=== PATIENT | male | born 1930 | race Caucasian/White ===

== ENCOUNTER → 2016-03-08 | Outpatient (CLI) | payer MEDICARE, BC ==
--- NOTE | 2016-03-08 15:36 | XR ---
EXAMINATION TYPE: XR chest 2V DATE OF EXAM: 03/08/2016 3:23 PM COMPARISON: Prior chest x-ray June 19, 2012. HISTORY: Right-sided chest pain and cough. TECHNIQUE: Frontal and lateral views of the chest are obtained. FINDINGS: Pectus excavatum deformity is redemonstrated seen best on lateral view. There is new left basilar atelectasis and/or infiltrate. There is increased opacity with silhouetting of right heart pipe rder, developing infiltrate and/or atelectasis at this level cannot be excluded. No pleural effusion or pneumothorax is present bilaterally. The cardiac silhouette size is within stable and upper limits of normal. The osseous structures are intact. IMPRESSION: New bibasilar atelectasis and/or infiltrate is present. Consider progress study after tr eatment.
== END | disposition home or self-care (01) ==
LOC: RADXRMAIN 15:06
PROVIDERS: ATTEND Family Medicine
DX: R05 Cough (principal); M54.6 Pain in thoracic spine
CPT/HCPCS: 71020

== ENCOUNTER → 2016-03-22 | Outpatient (CLI) | payer MEDICARE, BC ==
--- NOTE | 2016-03-22 12:03 | XR ---
EXAMINATION TYPE: XR chest 2V DATE OF EXAM: 03/22/2016 11:55 AM COMPARISON: 03/08/16 HISTORY: Shortness of breath TECHNIQUE: Frontal and lateral views of the chest are obtained. FINDINGS: Scattered senescent parenchymal changes noted. Hyperinflation compatible with COPD. No evidence for infiltrate. No evidence for atelectasis. Heart size is stable. Mediastinal structures are stable and grossly unremarkable. No evidence for hilar prominence. Degenerative changes dorsal spine. IMPRESSION: 1. No evidence for acute pulmonary disease.
== END | disposition home or self-care (01) ==
LOC: RADXRMAIN 11:38
PROVIDERS: ATTEND Family Medicine
DX: J18.9 Pneumonia, unspecified organism (principal)
CPT/HCPCS: 71020

== ENCOUNTER → 2016-09-09 | Outpatient (CLI) | payer MEDICARE, BC ==
--- NOTE | 2016-09-09 11:48 | MR ---
EXAMINATION TYPE: MR shoulder RT wo con DATE OF EXAM: 09/09/2016 11:13 AM COMPARISON: NONE HISTORY: Right shoulder pain TECHNIQUE: Multiplanar, multisequence imaging of the right shoulder is performed without contrast. FINDINGS: There is no evidence of an os acromiale. There is moderate hypertrophic change and mild inf lammatory change involving the right AC joint. There is a mildly downward sloping acromion. There is a complete tear of the supraspinatus tendon and incomplete is full-thickness tear of the ant erior fibers of the infraspinatus tendon. The supraspinatus tendon is retracted to the level of the m idportion of the humeral head. The cartilaginous glenoid labrum appears intact. The biceps tendon is attenuated. Does remain within the biceps tendon groove. It does insert normally on the biceps anchor. There is abnormal fluid in the subacromial and subdeltoid bursas. IMPRESSION: 1. COMPLETE TEAR OF THE SUPRASPINATUS TENDON. 2. NEAR-COMPLETE TEAR OF THE INFRASPINATUS TENDON. 3. MARKED ATTENUATION OF THE BICEPS TENDON. 4. HYPERTROPHIC CHANGES IN THE RIGHT AC JOINT.
== END | disposition home or self-care (01) ==
LOC: RADMRIMAIN 10:38
PROVIDERS: ATTEND Orthopaedic Surgery
DX: S46.011A Strain of muscle(s) and tendon(s) of the rotator cuff of right shoulder, initial encounter (principal); M89.311 Hypertrophy of bone, right shoulder; M67.88 Other specified disorders of synovium and tendon, other site

== ENCOUNTER 2017-03-23 05:51 | Day surgery (SDC) | payer MEDICARE, BC ==
[2017-03-16 09:03] VITALS: BMI 22.2
--- NOTE | 2017-03-22 12:41 | HP ---
HISTORY AND PHYSICAL DATE OF SERVICE: 03/23/2017 Calvin is an 86-year-old patient seen with progressive right shoulder pain. We discussed treatment options. He elected to proceed with shoulder arthroscopy. Consent was obtained. Medical clearance was provided by Dr. Sj Cristina. PAST MEDICAL HISTORY: Noncontributory. PAST SURGICAL HISTORY: Noncontributory. DAILY MEDICATIONS: Vitamins. ALLERGIES: None reported. SOCIAL HISTORY: Patient denies tobacco use. PHYSICAL EVALUATION RIGHT SHOULDER: Flexion is 130 degrees, abduction is 110 degrees, external rotation is 20 degrees with pain and weakness. There is tenderness along the anterolateral acromion and rotator cuff insertion site. Impingement sign is positive at 90 degrees. Drop-arm sign is positive. Distal neurovascular exam is intact. Radiographs of the right shoulder revealed a type 2 anterior acromion, acromioclavicular joint osteoarthritis and cystic changes of the tuberosity. A right shoulder MRI revealed rotator cuff tear. IMPRESSION: Right shoulder impingement with rotator cuff tear and acromioclavicular joint osteoarthritis. PLAN: Right shoulder arthroscopy with subacromial decompression, probable arthroscopic rotator cuff repair, probable Carlos procedure and debridement. MMODL / IJN: [id number] /
[~2017-03-23 05:51] MED LIST: ceFAZolin IN SWFI 2 GM/20 ML SYRINGE IVP ONE
[2017-03-23] MEDS ORDERED: ONDANSETRON 4 MG/2 ML VIAL IVP ONE (06:01)
[2017-03-23] MEDS ORDERED: LACTATED RINGERS 1,000 ML IV SCH (06:01)
[2017-03-23] MEDS ORDERED: MIDAZOLAM 2 MG/2 ML VIAL IV PRN (06:01)
[2017-03-23] MEDS ORDERED: HYDROmorphone 0.5 MG/0.5 ML SYRINGE IVP PRN (06:01)
[2017-03-23] MEDS ORDERED: LIDOCAINE 1% 20 ML VIAL (10MG/ML) FOR IV START INTRADERMA ONE (06:27)
[2017-03-23] MEDS ORDERED: DEXAMETHASONE SOD PHOS (MDV) 100 MG/10 ML VIAL IV ONE (06:27)
[2017-03-23] MEDS ORDERED: fentaNYL (PF) 50 MCG/ML 2 ML AMP IV ONE (07:21)
[2017-03-23] MEDS ORDERED: ePHEDrine SULFATE/0.9% NACL/PF 50 MG/5 ML SYRINGE IV ONE (07:29)
[2017-03-23] MEDS ORDERED: PROPOFOL 10 MG/ML 20 ML VIAL IV ONE (07:29)
[2017-03-23] MEDS ORDERED: LIDOCAINE 1% INJ 10MG/ML (20 ML MDV) ONE (07:29)
[2017-03-23] MEDS ORDERED: SUCCINYLCHOLINE CHLORIDE 100 MG/5 ML SYR IV ONE (07:29)
--- NOTE | 2017-03-23 07:59 | P.ONQ ---
Anesthesiology Proc Note - PNB - Peripheral Nerve Block Performed Right Interscalene Single Time Out Performed: Yes Procedure Start Time: 07:05 Indication: Acute Post-Operative Pain, Analgesia Specifically requested for management of pain by DrCar: Augustine Garcia Sedation Type: Sedate with meaningful contact maintained Preparation: Sterile Prep Position: Supine Catheter: None Needle Types: Other (see comment) (stimulpex) Needle Size: 50mm (2") Needle Gauge: 21 Technique: Ultrasound Injectate: 0.5% Ropivacaine (see comment for volume) (25cc) Blood Aspirated: No Pain Paresthesia on Injection Noted: No Resistance on Injection: Normal Events: Uneventful and Well Tolerated
[2017-03-23] MEDS ORDERED: LACTATED RINGERS 1,000 ML IV ONE (09:37)
--- NOTE | 2017-03-23 09:49 | P.OP ---
Date of Procedure: 03/23/17 Preoperative Diagnosis: Right shoulder impingement Postoperative Diagnosis: 1. Right shoulder rotator cuff tear 2. Right shoulder impingement 3. Right shoulder acromioclavicular joint osteoarthritis 4. Right shoulder superficial anterior labral tear Procedure(s) Performed: 1. Right shoulder arthroscopic rotator cuff repair 2. Right shoulder arthroscopic subacromial decompression 3. Right shoulder arthroscopic Carlos procedure 4. Right shoulder arthroscopic debridement labral tear Implants: 4-4.5 peek anchors Anesthesia: GETA, regional (Interscalene block) Surgeon: Augustine Garcia It Help Desk Manager #1: Josue Knight Estimated Blood Loss (ml): 10 Pathology: none sent Condition: stable Disposition: PACU Indications for Procedure: 86-year-old patient seen with progressive right shoulder pain. After having treatment options discussed, he elected to proceed with arthroscopy. Operative Findings: See description of procedure Description of Procedure: Patient underwent a shoulder block by department of anesthesia. The patient was then taken to the operative suite. The patient underwent a general anesthetic by the department of anesthesia. The patient was placed into a lateral position and secured. There was appropriate padding of the bony prominence. Right shoulder was then prepped and draped in normal sterile orthopedic fashion. We placed the extremity in 10 pounds of longitudinal traction. A posterior incision was now made for a posterior working portal site. The trocar and cannula were inserted into the glenohumeral joint. Arthroscopy was initiated. Spinal needle was now inserted anteriorly, to ascertain the anterior working portal site. An incision was now made in that area, a trocar was inserted followed by a probe. There was superficial tearing of the anterior labrum present. There were grade 3 and 4 chondromalacia changes posterior humeral head but no osteochondral tears. The biceps tendon was absent. There were grade 2 chondral malacia changes of the central portion of the humeral head and glenoid fossa, no osteochondral tears. There was a large rotator cuff tear visualized from the glenohumeral side. I debrided the labral tear down to stable tissue. The residual labrum was stable. Instruments were now removed from the glenohumeral joint. Utilizing the posterior working portal site, the trocar and cannula were inserted into the subacromial space. Arthroscopy initiated. I made an incision 2 fingerbreadths lateral to the acromion. I introduced my trocar followed by my [employer]throCare ablator. I now began ablating thick subacromial bursal tissue, which exposed the undersurface of the anterior acromion. This was diminished subacromial space. There was a very prominent anterior acromion. A motorized bur was introduced and a subacromial decompression was performed. I also excised some osteophytes off the inferior aspect of the distal clavicle. The AC joint was visualized and noted to be fairly arthritic. Our motorized bur was introduced in the anterior portal site and a Carlos procedure was performed without difficulty, decompressing the AC joint nicely. I turned my attention to the rotator cuff. There was a large rotator cuff tear measuring 44 0.5 cm. Involve the distal supraspinatus. I debrided the margins down to stable tissue. There was an intrasubstance tear posteriorly. I repaired that with 3 simple interrupted sutures. I abraded the footprint with a motorized bur. I created an rendering equipment tender portal site off the lateral acromion. I introduced 2 medial anchors with 2 sutures each. I passed all 8 limbs of suture through good bites of rotator cuff tendon. I crisscrossed the sutures compressing the tendon along the footprint nicely and introduced 2 lateral anchors. Residual suture limbs were clipped. We had a good stable 2 row repair. I injected 1 mL of the year UCT intra-articular. Instruments now removed from the portal sites. All portal sites were approximated with nylon suture. Sterile dressings were applied followed by a shoulder immobilizer. Pablo BROWN assisted with the procedure. The patient was awakened, transferred to a bed, and taken to recovery in stable condition.
[2017-03-23 09:54] VITALS: TEMP 97.4
[2017-03-23 11:17] VITALS: RESP 18
[2017-03-23 11:38] VITALS: BP 96/54; PULSE 69
== END 2017-03-23 12:56 | disposition home or self-care (01) ==
LOC: OR 05:51
PROVIDERS: ATTEND Orthopaedic Surgery
DX: M75.101 Unspecified rotator cuff tear or rupture of right shoulder, not specified as traumatic (principal); M25.811 Other specified joint disorders, right shoulder; M19.011 Primary osteoarthritis, right shoulder; S43.401A Unspecified sprain of right shoulder joint, initial encounter; X58.XXXA Exposure to other specified factors, initial encounter; M94.211 Chondromalacia, right shoulder; M25.711 Osteophyte, right shoulder
CPT/HCPCS: 29826; 29827; 29824; 93005; 64415; C1894; C1713; C1765; J2250; J2405; J2001; J3010; J1100; J0330; J2704; J0690

== ENCOUNTER → 2019-02-22 | Outpatient (CLI) | payer MEDICARE, BC ==
--- NOTE | 2019-02-22 14:50 | XR ---
EXAMINATION TYPE: XR chest 2V DATE OF EXAM: 02/22/2019 COMPARISON: 03/22/2016 HISTORY: 88-year-old male epigastric pain and chest discomfort TECHNIQUE: Frontal and lateral views FINDINGS: Heart upper limits of normal in size. Stable mild tortuosity of the thoracic aorta. Strandy atelectas is in the lower lungs. There is some patchy posterior basilar opacity on the lateral view without ple ural effusion. IMPRESSION: Some patchy posterior basilar atelectasis versus early infiltrate on the lateral view.
== END | disposition home or self-care (01) ==
LOC: RADXRMAIN 14:20
PROVIDERS: ATTEND Family Medicine
DX: R07.89 Other chest pain (principal); R10.13 Epigastric pain
CPT/HCPCS: 71046

== ENCOUNTER 2021-01-07 08:57 | Day surgery (SDC) | payer MEDICARE, BC ==
[2021-01-05 12:23] VITALS: BMI 21.9
--- NOTE | 2021-01-06 13:13 | P.HPOR ---
History of Present Illness H&P Date: 01/06/21 Chief Complaint: Right hand foreign body Subjective: This is a 89 year old male that presents today for initial evaluation regarding a right hand foreign body that occurred on 12/30/20. Patient was using a rake when he felt a wooden splinter go in the palm of his hand at the base of his ring finger. He saw his PCP who tried to remove the splinter in office but was unsuccessful. He has occasionally been taking augmentin from a prior injury. He hasn't noticed any purulence around the area and has minimal pain. Physical Examination: RUE: AIN/PIN/Radial/Ulnar/Median motor intact. Radial/Ulnar/Median SILT. 2+/4 Radial/Ulnar pulses palpated. Open 2mm wound at base of ring finger near level of distal palmar crease. NTTP over flexor tendon sheaths of all digits. No active drainage through wound. Imaging: X-Rays of the right hand demonstrate arthritic changes seen at the first and second MCP joints. On lateral view there appears to be a small linear foreign body at the level of the MCP flexion crease. Impression: 1.) Right hand foreign body Plan: Diagnosis and treatment options were discussed with the patient. Patient would like to have the splinter removed. I recommend doing this procedure in the operating room under local anesthetic. Risks and benefits of surgery were discussed including infection, bleeding, damage to surrounding tissue, need for further surgery and the patient wishes to proceed. He is placed on Bactrim DS for antibiotic prophylaxis. The patient was agreeable with this plan of action and will be scheduled of a right hand foreign body removal under local anesthetic in the operating room in the near future. -Jac Tovar DO Orthopedic Hand/Upper Extremity Surgeon Past Medical History Past Medical History: Cancer, Osteoarthritis (OA) Additional Past Medical History / Comment(s): hx prostate cancer, arthritis lower spine and neck, States sliver of wolmanized wood in right hand. History of Any Multi-Drug Resistant Organisms: None Reported Past Surgical History: Hernia Repair, Orthopedic Surgery, Prostate Surgery Additional Past Surgical History / Comment(s): rosemary cataract with lens implants, lt ankle plate and screws Past Anesthesia/Blood Transfusion Reactions: No Reported Reaction Past Psychological History: No Psychological Hx Reported Smoking Status: Never smoker Past Alcohol Use History: Rare Past Drug Use History: None Reported - Past Family History Mother Family Medical History: No Reported History Medications and Allergies Home Medications Medication Instructions Recorded Confirmed Type Ascorbic Acid [Vitamin C] 500 mg PO DAILY 03/16/17 01/05/21 History Multivitamin [Men's Multi-Vitamin] 1 each PO DAILY 03/16/17 01/05/21 History Amoxic-Pot Clav 875-125Mg 1 tab PO BID 01/05/21 01/05/21 History [Augmentin 875-125] Cholecalciferol [Vitamin D3 (25 25 mcg PO DAILY 01/05/21 01/05/21 History Mcg = 1000 Iu)] Ibuprofen 200 mg PO Q8H 01/05/21 01/05/21 History Empire-3 Fatty Acids/Fish Oil [Fish 1 each PO DAILY 01/05/21 01/05/21 History Oil 1,000 mg Softgel] Zinc 50 mg PO DAILY 01/05/21 01/05/21 History Allergies Allergy/AdvReac Type Severity Reaction Status Date / Time sulfamethoxazole AdvReac Unknown WEAKNESS, Verified 01/05/21 11:51 [From [place] MULTANIamethoxazole-Rashaad] CHILLS trimethoprim AdvReac Unknown WEAKNESS, Verified 01/05/21 11:51 [From [facility] Sulfamethoxazole-Trimethoprim] CHILLS Physical Examination Osteopathic Statement: *. No significant issues noted on an osteopathic structural exam other than those noted in the History and Physical/Consult.
[~2021-01-07 08:57] MED LIST changes: +HYDROmorphone 0.5 MG/0.5 ML SYRINGE IVP PRN; +LACTATED RINGERS 1,000 ML IV SCH; +LIDOCAINE 1% (10MG/ML) FOR IV START INTRADERMA PRN; +ONDANSETRON 4 MG/2 ML VIAL IVP ONE; +Pre Op ABX Message 1 EACH MISC MISCELLANE ONE; -ceFAZolin IN SWFI 2 GM/20 ML SYRINGE IVP ONE
[2021-01-07 09:21] VITALS: TEMP 96.9
[2021-01-07] MEDS ORDERED: BUPIVACAINE (PF) 0.5% 30 ML VIAL SQ ONE (10:37)
[2021-01-07] MEDS ORDERED: LIDOCAINE 2% (PF) 20 MG/ML 10 ML AMP SQ ONE (10:38)
[2021-01-07 10:53] VITALS: PULSE 61
[2021-01-07 11:12] VITALS: BP 122/76; RESP 18
--- NOTE | 2021-01-07 18:37 | P.OP ---
Date of Procedure: 01/07/21 Preoperative Diagnosis: Right Hand Foreign Body Postoperative Diagnosis: Right Hand Foreign Body Procedure(s) Performed: Right Hand Foreign Body Removal Anesthesia: local Surgeon: Jac Tovar Estimated Blood Loss (ml): 0 Pathology: none sent Condition: stable Disposition: PACU Indications for Procedure: This is a 89 year old male who presents today for a a right hand foriegn body removal. Patient sustained an injury resulting in a large wooden splinter being lodged into his palmar tissue . Risks and benefits of surgery were discussed with the patient including bleeding, damage to surrounding tissue, infection, need for further surgery as well as risks of anesthesia including pulmonary embolism and even and the patient wished to proceed with surgical intervention. The patients was seen in the pre-operative area by myself. Consent and H&P were completed and updated. The correct extremity was marked in the pre- operative area by myself and all other questions were answered. Operative Narrative: The patient was brought to the operating room by the department of anesthesia. They remained on the portable stretcher and a rolling hand table was brought to the side of the operative extremity. Pre-operative time out was performed indicating the correct patient, procedure and laterality. All in the room agreed. Local anesthesia was utilized and a 50:50 mixture of 1% Lidocaine and 0.5% bupivacaine was injected into the subcutaneous tissues of the palmar skin, 8 ccs total. A nonsterile tourniquet was then applied to the operative extremity and the right upper extremity was then prepped and draped in normal sterile fashion. The operative extremity was the exsanguinated with an esmarch bandage and the tourniquet was inflated to 250mmHg. 15 blade scalpel was utilized to make a transverse incision on the palmar skin at the level of the opening of the wound at the base of the ring finger at the level of the distal palmar crease. Blunt dissection was taken down to subcutaneous tissue. A 3cm wooden splinter was then identified and removed under direct visualization. The wound was then irrigated. Skin closure was performed with 4-0 nylon suture in horizontal mattress fashion. Sterile dressing was applied consisting of adaptic, 4x4s, Webril, and an césar bandage. Tourniquet was let down and the hand immediately was well perfused. The patient was then transferred to PACU in stable condition. -Jac Tovar DO Orthopedic Hand/Upper Extremity Surgeon
== END 2021-01-07 11:30 | disposition home or self-care (01) ==
LOC: OR 08:57
PROVIDERS: ATTEND Orthopaedic Surgery Hand Surgery
DX: S61.244A Puncture wound with foreign body of right ring finger without damage to nail, initial encounter (principal); X58.XXXA Exposure to other specified factors, initial encounter; M19.90 Unspecified osteoarthritis, unspecified site; M47.816 Spondylosis without myelopathy or radiculopathy, lumbar region; M47.812 Spondylosis without myelopathy or radiculopathy, cervical region; Z85.46 Personal history of malignant neoplasm of prostate; Z98.42 Cataract extraction status, left eye; Z98.41 Cataract extraction status, right eye; Z96.1 Presence of intraocular lens; Z98.890 Other specified postprocedural states; Z79.1 Long term (current) use of non-steroidal anti-inflammatories (NSAID); Z88.2 Allergy status to sulfonamides
CPT/HCPCS: 10120; J2001; J2405